=== PATIENT | male | born 1980 | race Caucasian/White ===

== ENCOUNTER 2021-04-19 14:08 | Outpatient (REF) | payer OTHER, SELFPAY ==
--- NOTE | ~2021-04-19 | XR_ITS ---
EXAMINATION: XR CERVICAL SPINE CLINICAL INFORMATION: Neck pain. COMPARISON: None TECHNIQUE: 5 views of the cervical spine were obtained. FINDINGS: There is mild straightening of cervical lordosis. The vertebral heights, alignment and disc heights are normal. There is mild uncovertebral hypertrophic changes narrowing the left neural foramina at the C5-C6 disc level. Rest of neural foramina are patent bilaterally. The prevertebral and paravertebral soft tissues are normal. No soft tissue lump seen. XR/XR cervical spine 4V IMPRESSION: Mild straightening of cervical lordosis. Mild narrowing of left neural foramina at C5-C6 disc level from uncovertebral hypertrophic changes. No visible acute fracture, dislocation or subluxation seen.
== END 2021-04-19 14:09 | disposition home or self-care (01) ==
LOC: HO.HMGCX 14:08
PROVIDERS: PCP Internal Medicine; Visit Provider Nurse Practitioner Family
DX: M54.2 Cervicalgia (principal); R22.1 Localized swelling, mass and lump, neck
CPT/HCPCS: 72050

== ENCOUNTER 2021-11-04 18:38 | Outpatient (REF) | payer OTHER, SELFPAY ==
[2021-11-04 19:26] LABS: Influenza A PCR NEGATIVE (Negative); Influenza B PCR NEGATIVE (Negative); Resp Syncy Virus RNA Qual PCR NEGATIVE (Negative); SARS COV2 PCR INHOUSE POSITIVE (Negative)
== END 2021-11-04 18:39 | disposition home or self-care (01) ==
LOC: HO.LNP 18:38
PROVIDERS: Visit Provider Internal Medicine
DX: R43.9 Unspecified disturbances of smell and taste (principal); Z20.822 Contact with and (suspected) exposure to COVID-19
CPT/HCPCS: 0241U

== ENCOUNTER 2023-08-21 10:59 | Emergency (ER) | payer OTHER, SELFPAY ==
[2023-08-21 11:04] VITALS: BP 132/96; PULSE 82; RESP 18; TEMP 36.8; O2SAT 100; BMI 25.5
--- NOTE | 2023-08-21 11:17 | ED.HEATRA ---
HPI - Head Injury General Chief complaint: Head Injury Stated complaint: Poss Concussion S/P Injury 2 Days Ago Time Seen by Provider: 08/21/23 12:56 Source: patient and family Mode of arrival: ambulatory Limitations: no limitations History of Present Illness HPI Narrative: 42 y/o male presents to the ER for evaluation of an ongoing headache difficulty sleeping after he hit his head at work 2 days ago on a metal door of a fedex truck. No LOC but he saw stars. Not on blood thinners. A few hours after the incident he developed nausea and vomiting x2. No vomiting since. He states he has not been sleeping well but his mother has been waking him up every 2 hours at night. He denies any lethargy, confusion, ongoing vomiting. He has not taken any medications for the headache or for sleep. MD Complaint: head injury and head pain Onset (ago): day(s) (2) Mechanism of Injury: work related injury Place: work Loss of Consciousness: no Location of injury: frontal Severity: moderate Quality: aching Radiation: none Associated symptoms: denies other symptoms Related Data Previous Rx's Medication Instructions Recorded cyclobenzaprine 5 mg tablet 5 - 10 mg (1 - 2 x 5 mg) PO TID 04/19/21 PRN muscle spasm #15 tabs ibuprofen 800 mg tablet 800 mg PO Q6H PRN pain #60 tabs 04/19/21 cyclobenzaprine 10 mg tablet 10 mg PO TID PRN muscle spasm #14 08/21/23 tabs ibuprofen 600 mg tablet 600 mg PO Q8H PRN pain #30 tabs 08/21/23 Allergies Allergy/AdvReac Type Severity Reaction Status Date / Time No Known Allergies Allergy Verified 11/04/21 15:44 Review of Systems Review of Systems: Yes all other systems are reviewed and are negative [facility] Social History Social History Patient Tobacco Use Status: Never used Tobacco Advance Directives: No Advance Directives Information Provided: Yes Physical Exam Vital Signs: Vital Signs: Last Vital Signs Temp 98.2 F 08/21/23 11:04 Pulse 82 08/21/23 11:04 Resp 18 08/21/23 11:04 BP 132/96 H 08/21/23 11:04 Pulse Ox 100 08/21/23 11:04 O2 Del Method Room Air 08/21/23 11:04 BMI result Body Mass Index 25.5 Appearance: Alert. Oriented X3. No acute distress. Head: normocephalic, atraumatic. Eyes: Pupils equal, round and reactive to light on the right. glass eye on the left. ENT: Pharynx normal. No tonsillar swelling or exudate. Neck: Normal inspection. Neck supple. CVS: Normal heart rate and rhythm. Pulses normal. Respiratory: No respiratory distress. Breath sounds normal. Skin: Skin warm and dry. Normal skin color. Normal skin turgor. No rashes. Extremities: No lower extremity edema. No joint swelling. Neuro/psych: Oriented X 3. No motor deficit. No sensory deficit. CN II-XII intact. Normal speech and cognition. Course Course Course Narrative: This is an RME: Additional HPI, ROS, PE not included below will be deferred to primary provider. Patient is a 42-year-old male who presents emergency department for evaluation after a head injury having occurred 2 days ago. Struck his head on acetic struck. Denies loss of consciousness or use of anticoagulants. He is experiencing increasing fatigue, difficulty sleeping, a worsening headache and vomiting. Plan: CT head Medications Administered Discontinued Medications Generic Name Dose Route Start Last Admin Trade Name Freq PRN Reason Stop Dose Admin Ibuprofen 600 mg 08/21/23 13:12 08/21/23 13:20 Ibuprofen 600 Mg Tablet PO 08/21/23 13:13 600 mg ONCE ONE Administration Medical Decision Making Medical Decision Making [facility] Narrative: 42 yo male presenting with headache and trouble sleeping s/p head injury 2 days ago. Neurologically intact, no further vomiting in last [address] head reviewed - normal. Ibuprofen and concussion precautions given to patient and family. comfortable w discharge home Differential Diagnosis Differential Diagnoses: The differential diagnosis associated with the presentation includes concussion without LOC, closed head injury, doubt SAH/ICH or skull fracture Independent Interpretation I performed an independent interpretation of an: CT Scan Interpretation: no ICH or edema Radiology Impression Discussion of test interpretation with radiology: I have reviewed the radiologist's reading. Radiologist Impression: CT HEAD WITHOUT CONTRAST CLINICAL INFORMATION: Head injury with increasing pain and vomiting COMPARISON: None available. TECHNIQUE: Contiguous axial imaging was performed from the skull base to vertex without intravenous administration of contrast. This CT examination was performed using dose optimization techniques as appropriate, variously including the following: *Automated exposure control *Adjustment of mA and/or kV according to patient size (this includes techniques or standardized protocols for targeted exams where dose is matched to indication/reason for exam; i.e. extremities or head) *Use of iterative reconstruction technique FINDINGS: There is no intracranial hemorrhage, hydrocephalus, extra-axial surface collection, midline shift, or other herniation pattern. Bolden to white matter differentiation is diffusely maintained without evidence of an evolved acute territorial infarct. The basilar cisterns are preserved. 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 No acute osseous abnormality. There is mild mucosal thickening within the maxillary sinuses and ethmoid air cells bilaterally. CT/CT head/brain wo IV con IMPRESSION: No acute intracranial abnormality. Independent Historian Clinical information obtained from an independent historian. History obtained from or confirmed by: Parent External Record Review External record reviewed: Prior outpatient labs Prescription Management I considered prescription management with: Pain Medication Critical Care Time Critical Care Time Critical Care Time: No Discharge Plan Discharge Clinical Impression: Concussion without loss of consciousness Qualifiers: Encounter type: initial encounter Qualified Code(s): S06.0X0A - Concussion without loss of consciousness, initial encounter Patient Disposition: Home, Self-Care Instructions: Concussion (ED) Additional Instructions: Your CT scan today was normal. You have signs and symptoms of a concussion. Recommend rest, both mental and physical rest. Avoid prolonged screen time. Take the prescribed ibuprofen as needed for headache. Recommend trial of the prescribed muscle relaxer at night to help you sleep. you can also try melatonin 3-5 mg over the counter to help with sleep. Sleep is an important part of recovery from a concussion Follow up with your PCP. If you develop new or worsening symptoms call 911 or come back to the ER for further evaluation. Prescriptions: New ibuprofen 600 mg tablet 600 mg PO Q8H PRN (Reason: pain) Qty: 30 0RF cyclobenzaprine 10 mg tablet 10 mg PO TID PRN (Reason: muscle spasm) Qty: 14 0RF No Action ibuprofen 800 mg tablet 800 mg PO Q6H PRN (Reason: pain) Qty: 60 0RF cyclobenzaprine 5 mg tablet 5 - 10 mg PO TID PRN (Reason: muscle spasm) Qty: 15 0RF Referrals: [facility] [Provider Group] (head injury at work) Acacia Kong MD [Primary Care Provider] - Stand Alone Forms: Work/School Release Interventions: ED Discharge Assessment Last Done: 08/21/23 13:31 Discharge Date/Time: 08/21/23 13:32
--- NOTE | 2023-08-21 12:47 | PC.NURSE ---
Addendum entered by Grisel Weaver 08/21/23 13:08: vomiting not diarrhea* Original Note: pt comes in today after work related incident. pt accidentally hit top of head on fedex truck. pt verbalizes headache/n/d/blurry vision. pt also verbalizes poor PO intake and insomnia. pt currently resting w/ lights dimmed in no apparent distress.
--- NOTE | 2023-08-21 13:21 | PC.NURSE ---
pt medicated per provider order.
== END 2023-08-21 13:32 | disposition home or self-care (01) ==
PROVIDERS: Emergency Provider Emergency Medicine; PCP Internal Medicine
DX: S06.0X0A Concussion without loss of consciousness, initial encounter (principal); W22.09XA Striking against other stationary object, initial encounter; Y93.89 Activity, other specified; Y92.812 Truck as the place of occurrence of the external cause; Y99.0 Civilian activity done for income or pay
CPT/HCPCS: 70450; 99283; 99284

== ENCOUNTER 2025-01-06 10:16 | Outpatient (REF) | payer OTHER, SELFPAY ==
--- OUTSIDE RECORDS SUMMARY | 2025-01-06 11:07 | XMS_ITS | Encounter Summary ---
Author Organization [employer] Address [address] [facility] [address] [place] [address] Care Team Providers Care Clerk Stenographer Name Role Phone Acacia Kong MD Primary Care Provider [phone] Reason for Visit * Reason Comments Pre-visit Planning SDOH negative, Tobac co screening negative. Encounter Details Date Type Department Care Team ([facility] Contact Info) Description 12/14/2024 Patient Outreach [facility] [address], [place] [phone] Acacia Kong MD [address], [place] [phone] Pre-visit Planning (SDOH negative, Tobacco screening negative. ) Social History Tobacco Use Types Packs/Day Years Used Date Smoking Tobacco: Never Smokeless Tobacco: Never Housing Stability Answer Date Recorded What is your housing situation today? I have sanju robles 12/14/[address] you li ve. Do you have problems with any of the following? None of the above 12/14/2024 Food Insecurity Answer Date Recorded Within the past 12 months, y ou worried that your food would run out before you got money to buy more: Never True 12/14/2024 Within the past 12 months,th e food you bought just didn't last and you didn't have enough money to get more: Never True Transportation Answer Date Recorded In the past 12 months, has l ack of transportation kept you from medical appts, meetings, work or from getting things needed for daily living? No 12/14/2024 Utilities Answer Date Recorded In the past 12 months, has t he electric, gas, oil or water company threatened to shut off services in your home? No 12/14/2024 Internet Access Answer Date Recorded Internet Access Q1 Yes 12/14/2024 Internet Access Q2 Not on file 12/14/2024 Sex and Gender Information Value Date Recorded Sex Assigned at Male 09/15/2022 10:23 AM EDT Legal Sex Male 10:23 AM EDT Gender Identity Male 09/15/2022 10:23 AM EDT Sexual Orientation Straight 09/15/2022 10 :23 AM EDT documented as of this encounter Progress Notes * Gina Aguilar - 12/14/2024 9:36 AM EST CC Gina Tejada placed successful outbound call to patient for pre-visit planning. Patient name and confirmed. Patient confirms appt date and time, and has transportation arrangements. Biggest concern for appointment at this time is no concerns. Appropriate screenings completed in anticipation ofappointment. documented in this encounter Plan of Treatment Not on file documented as of this encounter Visit Diagnoses Not on filedocumented in this encounter Care Teams Clerk Stenographer Relationship Specialty Start Date End Date Acacia Kong MD [address] [place] [id number] PCP - General Internal Medicine 04/22/21 documented as of this encounter
--- OUTSIDE RECORDS SUMMARY | 2025-01-06 11:07 | XMS_ITS | Clinical Summary ---
Author Organization [employer] Address [address] [facility] [facility] [address] [place] [address] Care Team Providers Care Payroll Assistant Name Role Phone Acacia Kong MD Primary Care Provider [phone] Allergies No known active allergies Medications acetaminophen (Tylenol) 500 MG tabletIndicatio ns:Influenza-li ke symptoms Take 2 tablets (1,000 mg) by mouth every 6 (six) hours if needed for moderate pain or fever for up to 25 doses. 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 ) from Last 3 Months Immunizations Name Administration Dates Next Due Tdap 09/28/2019,04/18/2008 Social History Tobacco Use Types Packs/Day Years Used Date Smoking Tobacco: Never Smokeless Tobacco: Never Tobacco Cessation:Counseling Given: Not Answered Depression Answer Date Recorded Patient Health Questionnaire-9 Score 0 12/21/2024 Patient Health Questionnaire-9 Score 0 12/21/2024 Last PHQ-9: Questionnaire Data Not on file 0 12/21/2024 Housing Stability Answer Date Recorded What is [...] off services in your home? No 12/14/2024 Depression Answer Date Recorded Patient Health Questionnaire-2 Score 0 12/21/2024 Internet Access Answer Date Recorded Internet Access Q1 Yes 12/14/2024 Internet Access Q2 Not on file 12/14/2024 Sex and Gender Information Value Date Recorded Sex Assigned at Male 09/15/2022 10:23 AM EDT Legal Sex Male 10:23 AM EDT Gender Identity Male 09/15/2022 10:23 AM EDT Sexual Orientation Straight 09/15/2022 10 :23 AM EDT Last Filed Vital Signs Vital Sign Reading Time Taken Comments Blood Pressure 121/71 12/21/2024 10:53 AM EST Pulse 81 12/21/2024 10:53 AM EST Temperature 36.6 ??C (97.8 ??F) 12/21/2024 10:[address] Respiratory Rate 20 12/21/2024 10:53 AM EST Oxygen Saturation 98% 12/21/2024 10:53 AM EST Inhaled Oxygen Concentration - - Weight 86.2 kg (190 lb) 12/21/2024 10:53 AM EST Height 181.6 cm (5' 11.5 ) 12/21/2024 10:[address] Body Mass Index 26.13 12/21/2024 10:53 AM EST Plan of Treatment Health Maintenance Due Date Last Done Comments HIV Screening 1980 Lipid Panel 1980 Family Planning (PISQ) 1995 Hepatitis C Screening 1998 Hepatitis B Vaccines (1 of 3 - 19+ 3-dose series) 1999 COVID-19 Vaccine ( - 2023-2 5 season) 2024 Influenza Vaccine (#1) 2024 Alcohol/Substance Use Screening 12/21/2025 12/21/2024 Depression Screening 12/21/2025 12/21/2024, 12/21/2024 SDOH Screening 12/21/2025 12/21/2024 Tobacco Screening 12/21/2025 12/21/2024 DTaP/Tdap/Td Vaccines (3 - T d or Tdap) 09/28/2029 09/28/2019, 04/18/2008 Zoster Vaccines (1 of 2) 2030 RSV Patients and Patients Aged 60 years or older (1 - 1-dose 75+ series) 2055 HIB Vaccines Aged Out No longer eligi ble based on patient's age to complete this topic HPV Vaccines Aged Out No longer eligi ble based on patient's age to complete this topic Hepatitis A Vaccines Aged Out No long er eligible based on patient's age to complete this topic IPV Vaccines Aged Out No longer eligi ble based on patient's age to complete this topic Meningococcal Vaccine Aged Out No carlo charisma eligible based on patient's age to complete this topic Pneumococcal Vaccine: Pediatrics (0 to 5 Years) and At-Risk Patients (6 to 49) Years) Aged Out No longer eligible b ased on patient's age to complete this topic RSV under 20 months Aged Out No longe r eligible based on patient's age to complete this topic Rotavirus Vaccines Aged Out No longer eligible based on patient's age to complete this topic Insurance [address] [place] [facility] [employer] [address] [place] Care Teams Payroll Assistant Relationship Specialty Start Date End Date Acacia Kong MD [address] [place] [address] VAIBHAV Boateng [id number] PCP - General Internal Medicine 04/22/21
--- OUTSIDE RECORDS SUMMARY | 2025-01-06 11:07 | XMS_ITS | Encounter Summary ---
Author Organization [email or web address] Address [address] [facility] [address] [place] [address] Care Team Providers Care Plate Former Name Role Phone Acacia Kong MD Primary Care Provider [phone] Reason for Referral * Consultation (Routine) - Closed Specialty Diagnoses / Procedures Referred By Geovanny sinclair Referred To Contact Otolaryngology Diagnoses Decreased hearing of left ear Acacia Kong MD [address] [place] [address] Phone: tel: fax: [facility] [address] Phone: tel: fax: Referral ID Status Reason Start Date Expiration Date V isits Requested Visits Authorized [id number] Closed Specialty Services Required 12/21/2024 12/21/2025 1 1 * Imaging (Routine) - Authorized Specialty Diagnoses / Procedures Referred By Geovanny sinclair Referred To Contact Radiology Diagnoses Right varicocele Right testicular pain Procedures US Scrotum Acacia Kong MD [address] [place] [address] Phone: tel: fax: [address] Phone: tel: fax: Referral ID Status Reason Start Date Expiration Date V isits Requested Visits Authorized [id number] Authorized 12/21/2024 12/21/2025 1 1 * Consultation (Routine) - Authorized Specialty Diagnoses / Procedures Referred By Geovanny sinclair Referred To Contact Podiatry Diagnoses Onychodystrophy Callus Acacia Kong MD [address] [place] [address] Phone: tel: fax: Lorenzo Mcclain, JUAN MANUEL [address] [facility] 1st Floor (Left) [place] [address] Phone: tel: fax: Referral ID Status Reason Start Date Expiration Date Visits Requested Visits Authorized [id number] Authorized Specialty Services Required 12/21/2024 12/21/2025 1 1 Encounter Details Date Type Department Care Team (Latest Contact Info) Description 12/21/2024 10:45 AM EST Office Visit [facility] [address] [place] [address] Acacia Kong MD [address] [place] [phone] Onychodystrophy (Primary Dx); Callus; Retinoblastoma of left eye (CMS/HCC); Dietary counseling; Exercise counseling; Overweight; Right varicocele; Right testicular pain; Decreased hearing of left ear; Varicocele Social History Tobacco Use Types Packs/Day Years Used Date Smoking Tobacco: Never Smokeless Tobacco: Never Depression Answer Date Recorded Patient Health Questionnaire-9 [...] AM EDT documented as of this encounter Last Filed Vital Signs Vital Sign Reading [...] Mass Index 26.13 12/21/2024 10:53 AM EST documented in this encounter Progress Notes * Acacia Kong MD - 12/21/2024 10:45 AM EST Images from the original note were not included. Subjective Patient ID: Brian Herr is a 44 y.o. male who presents for No chief complaint on file.. HPI Patient is overall feeling well. Has 3 complaints: 1) right testicular discomfort that started 1 week ago. No history of fall or other trauma. No fever or constitutional symptoms. No reported swelling or redness of the area. Patient is not sexually active. 2) history of callus that is tender of the ball of the left foot that started he has back. Patient tries himself to remove it but it grew back. He is also complaining of thickened and discolored leftbig toenails. 3) history of decreased hearing bilaterally but worse on the left that started years back. No otherassociated symptoms. Patient Active Problem List Diagnosis Retinoblastoma ([facility]) Prosthetic eye globe Current Outpatient Medications on File Prior to Visit Medication Sig Dispense Refill acetaminophen (Tylenol) 500 MG tablet Take 2 tablets (1,000 mg) by mouth every 6 (six) hours if needed for moderate pain or fever for up to 25 doses. 50 tablet 0 No current facility-administered medications on file prior to visit. No Known Allergies Review of Systems Constitutional: Negative for activity change, appetite change, chills and diaphoresis. HENT: Negative for dental problem, drooling and ear discharge. Eyes: Negative for pain and itching. Respiratory: Negative for cough, choking and chest tightness. Cardiovascular: Negative for palpitations and leg swelling. Gastrointestinal: Negative for abdominal pain, anal bleeding and blood in stool. Endocrine: Negative for cold intolerance and heat intolerance. Genitourinary: Positive for testicular pain. Negative for flank pain, frequency and genital sores. Musculoskeletal: Negative for back pain. Neurological: Negative for light-headedness, numbness and headaches. Psychiatric/Behavioral: Negative for agitation, confusion and decreased concentration. Objective BP 121/71 (BP Location: Left arm, Patient Position: Sitting, BP Cuff Size: Adult) Pulse 81 Temp97.8 ??F (36.6 ??C) (Oral) Resp 20 Ht 5' 11.5 (1.816 m) Wt 190 lb (86.2 kg) SpO2 98% BMI26.13 kg/m?? Physical Exam Constitutional: General: He is not in acute distress. Appearance: Normal appearance. He is obese. He is not ill-appearing, toxic- appearing or diaphoretic. HENT: Head: Normocephalic. Right Ear: Tympanic membrane normal. Left Ear: Tympanic membrane normal. Nose: Nose normal. Eyes: General: No scleral icterus. Right eye: No discharge. Left eye: No discharge. Pupils: Pupils are equal, round, and reactive to light. Cardiovascular: Rate and Rhythm: Normal rate and regular rhythm. Heart sounds: No murmur heard. No friction rub. No gallop. Pulmonary: Effort: Pulmonary effort is normal. No respiratory distress. Breath sounds: Normal breath sounds. No stridor. No wheezing, rhonchi or rales. Chest: Chest wall: No tenderness. Abdominal: General: Abdomen is flat. There is no distension. Palpations: Abdomen is soft. There is no mass. Tenderness: There is no abdominal tenderness. There is no right CVA tenderness, guarding or rebound. Hernia: No hernia is present. Genitourinary: Testes: Right: Varicocele present. Musculoskeletal: General: Normal range of motion. Cervical back: Normal range of motion. Skin: General: Skin is warm. Comments: Left thick and discolored toenail with subungual hyperkeratosis Callus of the ball of the left foot Neurological: General: No focal deficit present. Mental Status: He is alert. Psychiatric: Mood and Affect: Mood normal. Behavior: Behavior normal. Assessment/Plan Diagnoses and all orders for this visit: Onychodystrophy - CBC auto differential; Future - Comprehensive Metabolic Panel; Future - Lipid Panel, Standard; Future - TSH W/Reflex to FT4; Future - Referral to Podiatry; Future - HIV-1/2 Antigen and Antibodies, Fourth Generation, with Reflexes; Future Callus - Referral to Podiatry; Future Retinoblastoma of left eye (CMS/HCC) Comments: Follow up at [facility]. Was seen last summer. Dietary counseling Exercise counseling Overweight - CBC auto differential; Future - Comprehensive Metabolic Panel; Future - Lipid Panel, Standard; Future - TSH W/Reflex to FT4; Future Right varicocele - US Scrotum; Future Right testicular pain - US Scrotum; Future Decreased hearing of left ear - Referral to ENT; Future documented in this encounter Plan of Treatment Scheduled Orders Name Type Priority Associated Diagnoses Orde r Schedule CBC auto differential Lab Routine Onychodystrophy Overweight Expected: 12/21/2024 (Approximate), Expires: 12/21/2025 Comprehensive Metabolic Panel Lab Routine Onychodystrophy Overweight Expected: 12/21/2024 (Approximate), Expires: 12/21/2025 Lipid Panel, Standard Lab Routine Onychodystrophy Overweight Expected: 12/21/2024 (Approximate), Expires: 12/21/2025 TSH W/Reflex to FT4 Lab Routine Onychodystrophy Overweight Expected: 12/21/2024 (Approximate), Expires: 12/21/2025 HIV-1/2 Antigen and Antibodies, Fourth Generation, with Reflexes Lab Routine Onychodystrophy Expected: 12/21/2024 (Approximate), Expires: 12/21/2025 US Scrotum Imaging Routine Right varicocele Right testicular pain Expected: 12/21/2024, Expires: 12/21/2025 Scheduled Referrals Name Type Priority Associated Diagnoses Orde r Schedule Referral to Podiatry Outpatient Referral Routine Onychodystrophy Callus Expected: 12/21/2024 (Approximate), Expires: 12/21/2025 Referral to ENT Outpatient Referral Routine Decreased hearing of left ear Expected: 12/21/2024 (Approximate), Expires: 12/21/2025 documented as of this encounter Visit Diagnoses Diagnosis Onychodystrophy- Primary Other specified disease of nail Callus Corns and callosities Retinoblastoma of left eye (CMS/HCC) Dietary counseling Dietary surveillance and counseling Exercise counseling Overweight Right varicocele Scrotal varices Right testicular pain Decreased hearing of left ear Varicocele Scrotal varices documented in this encounter Additional Health Concerns Assessment Noted Time PHQ-9 Depression Total Score: 0 12/21/19 25 11:33 AM EST documented as of this encounter Care Teams Plate Former Relationship Specialty Start Date End Date Acacia Kong MD [address] [place] [phone] PCP - General Internal Medicine 04/22/21 documented as of this encounter
--- OUTSIDE RECORDS SUMMARY | 2025-01-06 11:07 | XMS_ITS | Encounter Summary ---
Author Organization [employer] Address [address] [facility] [address] [place] [address] Care Team Providers Care Medical Staff Specialist Name Role Phone Acacia Kong MD Primary Care Provider [phone] Encounter Details Date Type Department Care Team (Latest Contact Info) Description 12/21/2024 Travel Social History Tobacco Use Types Packs/Day Years [...] AM EDT documented as of this encounter Plan of Treatment Not on file documented as of this encounter Visit Diagnoses Not on filedocumented in this encounter Additional Health Concerns Assessment Noted Time PHQ-9 Depression Total Score: 0 12/21/19 25 11:33 AM EST documented as of this encounter Care Teams Medical Staff Specialist Relationship Specialty Start Date End Date Acacia Kong MD [address] [place] [phone] PCP - General Internal Medicine 04/22/21 documented as of this encounter
[2025-01-06 14:03] LABS: MANUAL DIFF FLAG NO
[2025-01-06 14:08] LABS: Basophils Absolute Auto 0.1 X10*3/uL (0.0-0.2); Basophils Percent Auto 0.6 % (0-2); Eosinophils Absolute Auto 0.1 X10*3/uL (0.0-0.4); Eosinophils Percent Auto 1.6 % (0-4); Hematocrit 39.8 % (42.0-52.0); Hemoglobin 13.8 g/dl (14.0-18.0); Imm Gran Abs Auto 0.06 X10*3/uL (0.00-0.03); Imm Gran Pct Auto 0.7 % (0.0-0.4); Lymphocytes Absolute Auto 3.7 X10*3/uL (1.2-4.9); Lymphocytes Percent Auto 42.2 % (20-40); Mean Corpuscular HGB Conc 34.7 g/dl (31.0-36.0); Mean Corpuscular Hemoglobin 32.9 pg (27.0-33.0); Mean Corpuscular Volume 94.8 fL (80.0-98.0); Mean Platelet Volume 9.3 fL (9.4-12.4); Monocytes Absolute Auto 0.5 X10*3/uL (0.1-1.2); Monocytes Percent Auto 5.7 % (2-11); Neutrophils Absolute Auto 4.3 x10*3/uL (2.0-8.3); Neutrophils Percent Auto 49.2 % (45-73); Platelet Count 231 X10*3/uL (160-400); White Blood Count 8.8 X10*3/uL (4.8-10.8)
[2025-01-06 14:31] LABS: Alanine Aminotransferase 21 U/L (0-40); Albumin Level 4.4 g/dL (3.5-5.0); Alkaline Phosphatase 48 U/L (39-117); Anion Gap 10 (12-20); Aspartate Amino Transferase 24 U/L (5-37); Blood Urea Nitrogen 10 mg/dL (9-16); Calcium 9.4 mg/dL (8.4-10.2); Carbon Dioxide 28 mmol/L (22-29); Chloride 104 mmol/L (96-108); Cholesterol 241 mg/dL (<200); Estimated Glomerular Filt Rate > 60; Glucose Random 85 mg/dL (60-115); HDL Cholesterol 49 mg/dL (>40); LDL Cholesterol Calculated 170 mg/dL (<100); Potassium 3.8 mmol/L (3.3-5.1); Sodium 138 mmol/L (135-145); Total Protein 7.4 g/dL (6.5-8.0); Triglycerides 113 mg/dL (<150)
[2025-01-06 14:35] LABS: TSH reflex Free T4 0.77 uIU/mL (0.32-4.0)
[2025-01-07 08:12] LABS: HIV AB/AG Nonreactive (Nonreactive); HIV Num 1 0.06 S/CO (0.00-0.99)
== END 2025-01-06 10:17 | disposition home or self-care (01) ==
LOC: HO.CHCLDS 10:16
PROVIDERS: Visit Provider Internal Medicine
DX: L60.3 Nail dystrophy (principal); E66.3 Overweight
CPT/HCPCS: 36415; 80053; 80061; 84443; 85025; 87389

== ENCOUNTER 2025-01-09 11:13 | Outpatient (REF) | payer OTHER, SELFPAY ==
--- NOTE | ~2025-01-09 | US_ITS ---
CLINICAL HISTORY: Right testicular pain w varicocele US SCROTUM WITH DOPPLER Comparison: None Findings: Right testicle normal echotexture, 5.1 x 2.3 x 4.2 cm. Left testicle normal echotexture, 4.7 x 2.5 x 3.1 cm. Color Doppler and arterial/venous spectral tracings of both testicles within normal limits. 3 mm right epididymal head cyst otherwise normal epididymides. Multiple small bilateral varicoceles left greater than right. Small bilateral hydroceles, right greater than left IMPRESSION: 1. Multiple small bilateral varicoceles, left greater than right. 2. Small bilateral hydroceles, right greater than left. 3. No acute testicular torsion or acute epididymo-orchitis. 4. No suspicious mass. 5. Tiny right epididymal head cyst. This document has been electronically signed by: Odilia Thomas DO on 01/09/2025 21:07:38
== END 2025-01-09 11:14 | disposition home or self-care (01) ==
LOC: HO.HMGCX 11:13
PROVIDERS: PCP Internal Medicine; Visit Provider Internal Medicine
DX: I86.1 Scrotal varices (principal); N50.811 Right testicular pain
CPT/HCPCS: 76870

== ENCOUNTER → 2025-01-09 11:19 | Outpatient (BNV) | payer OTHER, SELFPAY | PROVIDERS: PCP Internal Medicine; Visit Provider Radiology Diagnostic Radiology | DX: N43.3 Hydrocele, unspecified (principal) | CPT/HCPCS: 76870 ==